=== PATIENT | female | born 1935 | race Caucasian/White ===

== ENCOUNTER 2024-01-17 11:29 | Emergency (ER) | payer MEDICARE, OTHER, SELFPAY ==
[2024-01-17 11:37] VITALS: BP 133/85; PULSE 82; RESP 20; TEMP 36.3; O2SAT 95; BMI 29.3
--- NOTE | 2024-01-17 11:47 | ED.GENADULT ---
HPI - General Adult General Chief complaint: Shortness of Breath/Dyspnea Stated complaint: Congestion, labored breathing Time Seen by Provider: 01/17/24 11:45 History of Present Illness HPI narrative: Patient noted to have more crackling breathing noises since Tuesday as well as fatigued, short of breath. History of heart issues and a couple strokes. Seems like she cannot take a deep breath. 88-year-old woman presenting to the emergency department with her daughter with whom she lives with concern of shortness of breath but especially ?crackling? with breathing over the last couple of days. H/o CHFHas been more tired lately as well. Underlying history of atrial fibrillation is anticoagulated with Eliquis. History of CVA as well. Daughter noted that seems little restricted with deep breaths. Did check a weight this last weekend; don't check regularly. No significant weight increase. Has actually generally been losing weight for a while. No fever or cough. No dysuria frequency urgency. Related Data Home Medications ?Medication ?Instructions ?Recorded ?Confirmed apixaban 5 mg tablet (Eliquis) 5 mg PO BID 01/17/24 01/17/24 atenolol 25 mg tablet mg PO 01/17/24 multivitamin (Daily Multi-Vitamin 1 tab PO DAILY 01/17/24 01/17/24 tablet) nitroglycerin 0.4 mg sublingual sublingual 01/17/24 tablet oxybutynin chloride 5 mg tablet mg PO 01/17/24 pravastatin 10 mg tablet 10 mg PO QPM 01/17/24 01/17/24 Allergies Allergy/AdvReac Type Severity Reaction Status Date / Time No Known Drug Allergies Allergy Verified 01/17/24 11:36 Review of Systems Status of ROS: Reports: 6 or more systems reviewed and unremarkable except as noted in History and below Exam Narrative: Exam Narrative: Pleasant. A little hard of hearing. Easily conversant. Lungs are actually clear. Is slightly labored and slightly tachypneic. Extremities are without notable edema. She is well-perfused. Heart is in an irregularly irregular rhythm. Might be a trace murmur here as well. Abdomen is soft and nontender. Mild HJR. Oropharynx is a little sticky. Const: Vital Signs, click to edit/add: Vital Signs - 24 hr 01/17/24 11:37 01/17/24 12:33 Temperature 97.3 F L Pulse Rate [Pulse Oximeter] 82 93 Respiratory Rate 20 [facility] 133[facility]85 Pulse Oximetry 95 95 Oxygen Delivery Me thod Room Air Documenting provider has reviewed patient's vital signs: yes Course Vital Signs Vital signs: Initial Vital Signs Temperature 97.3 F L 01/17/24 11:37 Temperature Source Temporal Artery Scan 01/17/24 11:37 Pulse Rate 82 01/17/24 11:37 Pulse Rhythm Regular 01/17/24 11:37 Respiratory Rate 20 01/17/24 11:37 Blood Pressure 133/85 01/17/24 11:37 Blood Pressure Mean 101 01/17/24 11:37 Blood Pressure Position Sitting 01/17/24 11:37 Pulse Oximetry 95 01/17/24 11:37 Oxygen Delivery Method Room Air 01/17/24 11:37 Vital Signs Temperature 97.3 F L 01/17/24 11:37 Pulse Rate 82 01/17/24 11:37 Respiratory Rate 20 01/17/24 11:37 Blood Pressure 133/85 01/17/24 11:37 Pulse Oximetry 95 01/17/24 11:37 Oxygen Delivery Method Room Air 01/17/24 11:37 Temperature 97.3 F L 01/17/24 11:37 Pulse Rate 93 01/17/24 12:33 Respiratory Rate 20 01/17/24 11:37 Blood Pressure 133/85 01/17/24 11:37 Pulse Oximetry 95 01/17/24 12:33 Oxygen Delivery Method Room Air 01/17/24 11:37 Medical Decision Making MDM Narrative Medical decision making narrative: Vitals are reassuring. Respiratory rate of 20. Would need to evaluate for pneumonia. Might be CHF exacerbation. Chronic atrial fibrillation might be contributing. Anemia? Collecting labs. Chest x-ray. Monitoring in the emergency department for further event. Chest x-ray reviewed independently by me looks similar to prior. Primary finding is some interstitial congestion. I think some mild cardiomegaly as well. Radiology over-read below TECHNIQUE: Chest 1 views. COMPARISON: Chest radiograph dated 03/24/2015. FINDINGS: Cardiovasculature and mediastinum: Grossly similar cardiomediastinal contours, allowing for partial obscuration. Lungs and pleural spaces: Redemonstrated left retrocardiac consolidation. Low lung volumes with mild diffuse interstitial prominence. No definite pleural effusion. No pneumothorax. Bones and soft tissues: No significant findings. IMPRESSION: Redemonstrated left retrocardiac consolidation, which could either be recurrent or chronic. Low lung volumes with mild diffuse interstitial prominence, which could be artifactual, though mild pulmonary edema can have a similar appearance. Labs are generally reassuring. Blood sugar a little bit low. No anemia. Normal white count. BNP is elevated to 2650 but not atypical upon review. Finally urine analysis obtained which looks very positive for urinary tract infection. Certainly this could explain general fatigue. Urine culture pending. Appears safe for discharge at this time. Will be discharged to daughter. See patient discharge plan for further discussion Continue to focus on hydration with water. Prescribing 7 days of cephalexin from [facility]. Return for increasing persistent shortness of breath, worsening weakness, associated fever. Still have some concern that you might have mild CHF exacerbation here as well. Follow-up as scheduled with your primary care provider A urine culture will be pending here. I will call you if your swabs are positive. Medical Records Medical records reviewed: Yes I reviewed the patient's medical records Lab Data Lab results reviewed: Yes I reviewed the patient's lab results Labs: Lab Results 01/17/24 01/17/24 Range/Units 12:15 13:55 WBC 8.14 (4.50-11.00) K/uL RBC 4.74 (4.00-5.20) m/uL Hgb 14.8 (12.0-16.0) gm/dL Hct 45.9 (33.0-51.0) % MCV 97 (80-100) fL MCH 31 (26-34) pg MCHC 32 (32-36) gm/dL RDW Coeff of Charles 14.8 (11.5-15.5) % Plt Count 213 (140-440) K/uL Neut % (Auto) 56.5 (42.0-72.0) % Lymph % (Auto) 32.2 (20-44) % [place] % (Auto) 9.2 (0.0-11.0) % Eos % (Auto) 1.8 (0.0-7.0) % Baso % (Auto) 0.2 (0.0-3.0) % Neut # (Auto) 4.59 (1.7-7.0) K/uL Lymph # (Auto) 2.62 (0.90-2.90) K/uL Marion # (Auto) 0.70 (0.00-0.90) K/UL Eos # (Auto) 0.15 (0.00-0.50) K/uL Baso # (Auto) 0.02 (0.00-0.30) K/uL Abs Immat Gran (auto) 0.01 (0.00-0.30) K/uL Imm/Tot Granulo (auto) 0.1 % Sodium 142 (135-149) mmol/L Potassium 3.5 L (3.6-5.1) mmol/L Chloride 107 (96-114) mmol/L Carbon Dioxide 29 (20-32) mmol/L Anion Gap 6 L (7-15) mEq/L BUN 17 (7-30) mg/dL Creatinine 0.9 (0.5-1.5) mg/dL Estimated Creat Clear 29.34 Estimated GFR 61 ml/min Glucose 53 L (60-115) mg/dL Calcium 9.5 (8.4-10.6) mg/dL C-Reactive Protein 0.8 (0.5-1.0) mg/dL NT-Pro-B Natriuret Pep 2650 pg/mL Urine Color Yellow (Yellow) Urine Appearance Cloudy A (Clear) Urine pH 5.5 (5.0-8.5) Ur Specific [place] >= 1.030 (1.000-1.030) Urine Protein 1+ A (Negative) Urine Glucose (UA) Negative (Negative) Urine Ketones Negative (Negative) Urine Blood 1+ A (Negative) Urine Nitrite Positive A (Negative) Urine Bilirubin Negative (Negative) Urine Urobilinogen 0.2 (0.2-1.0) Ur Leukocyte Esterase 1+ A (Negative) Urine RBC 5-10 A (0-2) Urine WBC >100 A (0-5) Urine WBC Clumps Few A (None) Ur Squamous Epith Cells Few (None-Few) Urine Bacteria Many A (None) SARS-CoV-2 (PCR) Negative SARS-CoV-2 (Negative) Influenza Type A (PCR) Negative PCR FLU A (Negative) Influenza Type B (PCR) Negative PCR FLU B (Negative) RSV (PCR) Negative PCR RSV (Negative) Discharge Plan Discharge Clinical Impression: Urinary tract infection, Fatigue, Chest congestion Patient Disposition: Home w/ Parent or Adult Condition: Stable Additional Instructions: Continue to focus on hydration with water. Prescribing 7 days of cephalexin from [facility]. Return for increasing persistent shortness of breath, worsening weakness, associated fever. Still have some concern that you might have mild CHF exacerbation here as well. Follow-up as scheduled with your primary care provider A urine culture will be pending here. I will call you if your swabs are positive. Prescriptions: No Action atenolol 25 mg tablet PO pravastatin 10 mg tablet 10 mg PO QPM nitroglycerin 0.4 mg tablet, sublingual sublingual oxybutynin chloride 5 mg tablet PO Eliquis 5 mg tablet 5 mg PO BID multivitamin [Daily Multi-Vitamin] Tablet 1 tab PO DAILY Follow Up/Referrals: Stephanie Sierra PA-C [Primary Care Provider] - Stand Alone Forms: [facility] Info Instructions
--- NOTE | 2024-01-17 11:58 | CRLHL7_ITS ---
For Patients: As a result of the Century Cures Act, medical imaging exams and procedure reports are released immediately into your electronic medical record. You may view this report before your referring provider. If you have questions, please contact your health care provider. INDICATION: Dyspnea. TECHNIQUE: Chest 1 views. COMPARISON: Chest radiograph dated 03/24/2015. FINDINGS: Cardiovasculature and mediastinum: Grossly similar cardiomediastinal contours, allowing for partial obscuration. Lungs and pleural spaces: Redemonstrated left retrocardiac consolidation. Low lung volumes with mild diffuse interstitial prominence. No definite pleural effusion. No pneumothorax. Bones and soft tissues: No significant findings. IMPRESSION: Redemonstrated left retrocardiac consolidation, which could either be recurrent or chronic. Low lung volumes with mild diffuse interstitial prominence, which could be artifactual, though mild pulmonary edema can have a similar appearance. Dictated by Kirk Mcclure MD @ 01/17/2024 12:45:13 PM (Electronically Signed)
[2024-01-17 12:31] LABS: Basophils Absolute Auto 0.02 K/uL (0.00-0.30); Basophils Percent Auto 0.2 % (0.0-3.0); Eosinophils Absolute Auto 0.15 K/uL (0.00-0.50); Eosinophils Percent Auto 1.8 % (0.0-7.0); Hematocrit 45.9 % (33.0-51.0); Hemoglobin* 14.8 gm/dL (12.0-16.0); Immature Granulocytes Abs Auto 0.01 K/uL (0.00-0.30); Immature Granulocytes Pct Auto 0.1 %; Lymphocytes Absolute Auto 2.62 K/uL (0.90-2.90); Lymphocytes Percent Auto 32.2 % (20-44); Mean Corpuscular HGB Conc 32 gm/dL (32-36); Mean Corpuscular Hemoglobin 31 pg (26-34); Mean Corpuscular Volume 97 fL (80-100); Monocytes Percent Auto 9.2 % (0.0-11.0); Neutrophils Absolute Auto 4.59 K/uL (1.7-7.0); Neutrophils Percent Auto 56.5 % (42.0-72.0); Platelet Count* 213 K/uL (140-440); RDW Coefficient of Variation % 14.8 % (11.5-15.5); Red Blood Count 4.74 m/uL (4.00-5.20); Slide Review Reflex No; White Blood Count* 8.14 K/uL (4.50-11.00)
[2024-01-17 12:33] VITALS: PULSE 93; O2SAT 95
[2024-01-17 12:41] LABS: Chloride* 107 mmol/L (96-114); Potassium* 3.5 mmol/L (3.6-5.1); Sodium* 142 mmol/L (135-149)
[2024-01-17 12:44] LABS: Creatinine* 0.9 mg/dL (0.5-1.5); Est. Creatinine Clearance* 29.34; Estimated Glomerular Filt Rate 61 ml/min
[2024-01-17 12:45] LABS: Anion Gap 6 mEq/L (7-15); Blood Urea Nitrogen* 17 mg/dL (7-30); Calcium* 9.5 mg/dL (8.4-10.6); Carbon Dioxide* 29 mmol/L (20-32); Glucose* 53 mg/dL (60-115)
[2024-01-17 12:48] LABS: C Reactive Protein* 0.8 mg/dL (0.5-1.0)
[2024-01-17 12:57] LABS: NT Pro B Type NatriureticPept* 2650 pg/mL
[2024-01-17 14:08] LABS: Appearance Urine Cloudy (Clear); Bilirubin Urine Negative (Negative); Blood Urine 1+ (Negative); Color Urine Yellow (Yellow); Glucose Urine Negative (Negative); Ketones Urine Negative (Negative); Leukocyte Esterase Urine 1+ (Negative); Nitrite Urine Positive (Negative); Protein Urine 1+ (Negative); Specific Gravity Urine >= 1.030 (1.000-1.030); Urobilinogen Urine 0.2 (0.2-1.0); pH Urine 5.5 (5.0-8.5)
[2024-01-17 14:17] LABS: Bacteria Urine Many; Squamous Epithelial Cell Urine Few (None-Few); WBC Clumps Urine Few; WBC Urine >100 (0-5)
[2024-01-17 14:42] LABS: PCR FLU A Negative PCR FLU A (Negative); PCR FLU B Negative PCR FLU B (Negative); PCR RSV Negative PCR RSV (Negative); SARS PCR* Negative SARS-CoV-2 (Negative)
== END 2024-01-17 14:47 | disposition home or self-care (01) ==
PROVIDERS: Emergency Provider Family Medicine; PCP Physician Assistant
DX: N39.0 Urinary tract infection, site not specified (principal); R09.89 Other specified symptoms and signs involving the circulatory and respiratory systems
CPT/HCPCS: 36415; 71045; 80048; 81001; 83880; 85025; 86140; 87086; 87186; 87631; 99284